=== PATIENT | female | born 1960 | race Caucasian/White ===

== ENCOUNTER → 2018-07-19 | Outpatient (REF) | payer OTHER, MEDICAID | LOC: M SFHCLERA 11:39 | DX: J02.9 Acute pharyngitis, unspecified (principal) ==

== ENCOUNTER → 2021-02-20 | Outpatient (CLI) | payer OTHER ==
[~2021-02-20] MED LIST: E-Z-GAS II EFFERVESCENT PACKET (SODIUM BICARB./CITRIC ACID/SIMETHICONE) As Ordered ONE; E-Z-HD 98% w/w 340GM SUSP BTL As Ordered ONE; E-Z-PAQUE 96% w/w SUSP 176GM BTL As Ordered ONE
--- NOTE | 2021-02-20 18:51 | REP ---
INDICATION: DYSPHAGIA GERD W/ EPIGASTRIC PAIN. COMPARISON: None TECHNIQUE: This procedure was performed by Marie Skaggs [facility], under the direct supervision of Dr. Haddad. Images were reviewed with Dr. Haddad prior to dictation. Liquid barium and gas producing crystals were given in the erect position, as well as liquid barium in the prone oblique position in order to perform a double contrast upper GI examination. FINDINGS: The preschool aide film shows no organomegaly or pathological masses. The intestinal gas pattern is unremarkable. Again visualized is dextroconvex curvature of the thoracolumbar junction with a Morris ara from the upper thoracic spine to the mid lower lumbar spine. The oral and pharyngeal stages of deglutition were unremarkable. There cricopharyngeal hyperplasia. Esophageal transport is prompt and efficient and there is no evidence of esophagitis, stricture, or mucosal ring. There is evidence of a moderate sliding hiatal hernia. Gastroesophageal reflux was visualized to the level of the barby. The stomach feliciano are normally outlined. The rugal folds are smooth and regular. There is no gastritis, neoplasm, or ulcerative disease. The duodenal feliciano are normally outlined. The mucosal folds are smooth and regular. There is no duodenitis, peptic ulcer disease or neoplasm. The visualized portion of the proximal small bowel appears normal in course and caliber. IMPRESSION: 1. Cricopharyngeal hyperplasia. 2. Moderate sliding hiatal hernia. 3. Gastroesophageal reflux to the level of the barby. 1.0 minutes of fluoroscopy time was utilized for this procedure. Some fluoroscopic images are performed with last image hold technology. These images require no additional radiation. <Electronically signed by Marie Skaggs > 02/20/21 155 <Electronically signed by Gonzalo Haddad > 02/20/21 [id number]
== END ==
LOC: M RAD 09:47
PROVIDERS: ATTEND Physician Assistant Medical
DX: R13.10 Dysphagia, unspecified (principal); K21.9 Gastro-esophageal reflux disease without esophagitis; R10.13 Epigastric pain

== ENCOUNTER → 2021-03-08 | Outpatient (CLI) | payer OTHER, MEDICAID ==
[~2021-03-08] MED LIST changes: +CELE1CAP9 PO; +D3400CAP PO; -E-Z-GAS II EFFERVESCENT PACKET (SODIUM BICARB./CITRIC ACID/SIMETHICONE) As Ordered ONE; -E-Z-HD 98% w/w 340GM SUSP BTL As Ordered ONE; -E-Z-PAQUE 96% w/w SUSP 176GM BTL As Ordered ONE; +LISI10TA22 PO; +METO1TAB32; +RA M500C PO; +TAMS1CAP17 PO
== END ==
LOC: M LABSMTC 08:50
PROVIDERS: ATTEND Anesthesiology
DX: Z20.828 Contact with and (suspected) exposure to other viral communicable diseases (principal); Z11.59 Encounter for screening for other viral diseases

== ENCOUNTER 2021-03-13 09:21 | Day surgery (SDC) | payer OTHER ==
[~2021-03-13] VITALS: Ht 147.3 cm; Wt 82.3 kg
[~2021-03-13 09:21] MED LIST changes: +LIDOCAINE 2% 100MG/5ML SDV (FOR ANES.) As Ordered ONE; +NS 1,000 ML IV ONE; +propofoL 200 MG/20 ML VIAL As Ordered ONE
[2021-03-13] MEDS ORDERED: propofoL 200 MG/20 ML VIAL As Ordered ONE (10:23)
--- NOTE | 2021-03-13 10:46 | ROOR ---
Patient Name: Courtney Sherwood Procedure Date: 03/13/2021 10:10 AM Date of : 1960 Age: 60 Room: [facility] Gender: Female Note Status: Finalized Procedure: Upper GI endoscopy Indications: Dysphagia, Suspected gastro-esophageal reflux disease Providers: Freddy Lopez MD Referring MD: Shireen NAVARRO MD Requesting Provider: Medicines: Monitored Anesthesia Care Complications: No immediate complications. Procedure: Pre-Anesthesia Assessment: - Prior to the procedure, a History and Physical was performed, and patient medications and allergies were reviewed. The patient is competent. The risks and benefits of the procedure and the sedation options and risks were discussed with the patient. All questions were answered and informed consent was obtained. Patient identification and proposed procedure were verified by the physician, the nurse and the anesthesiologist in the procedure room. Mental Status Examination: alert and oriented. Airway Examination: normal oropharyngeal airway and neck mobility. Respiratory Examination: clear to auscultation. CV Examination: normal. Prophylactic Antibiotics: The patient does not require prophylactic antibiotics. Prior Anticoagulants: The patient has taken no previous anticoagulant or antiplatelet agents. ASA Grade Assessment: II - A patient with mild systemic disease. After reviewing the risks and benefits, the patient was deemed in satisfactory condition to undergo the procedure. The anesthesia plan was to use monitored anesthesia care (MAC). Immediately prior to administration of medications, the patient was re-assessed for adequacy to receive sedatives. The heart rate, respiratory rate, oxygen saturations, blood pressure, adequacy of pulmonary ventilation, and response to care were monitored throughout the procedure. The physical status of the patient was re-assessed after the procedure. The Endoscope was introduced through the mouth, and advanced to the second part of duodenum. The upper GI endoscopy was accomplished without difficulty. The patient tolerated the procedure well. Findings: One benign-appearing, intrinsic moderate stenosis was found in the distal esophagus. This stenosis measured 1.5 cm (inner diameter). The stenosis was traversed. Biopsies were taken with a cold forceps for histology. Verification of patient identification for the specimen was done by the physician and nurse using the patient's name, date and medical record number. Estimated blood loss was minimal. A TTS dilator was passed through the scope. Dilation with a 15-16.5-18 mm balloon dilator was performed to 18 mm. The dilation site was examined following endoscope reinsertion and showed mild mucosal disruption, moderate improvement in luminal narrowing and no perforation. A small hiatal hernia was present. Scattered mild inflammation characterized by erythema and granularity was found in the gastric antrum. Biopsies were taken with a cold forceps for Helicobacter pylori testing. The duodenal bulb and second portion of the duodenum were normal. Impression: - Benign-appearing esophageal stenosis. Biopsied. Dilated. - Small hiatal hernia. - Gastritis. Biopsied. - Normal duodenal bulb and second portion of the duodenum. Recommendation: - Patient has a contact number available for emergencies. The signs and symptoms of potential delayed complications were discussed with the patient. Return to normal activities tomorrow. Written discharge instructions were provided to the patient. - Full liquid diet today, then advance as tolerated to high fiber diet. - Continue present medications. - Use Protonix (pantoprazole) 40 mg PO twice daily - to be taken in morning (1/2 hour before breakfast) and at bedtime ( atleast 3 hours after last meal) for 3 months. - Use sucralfate suspension 1 gram PO QID for 4 weeks. - Follow an antireflux regimen. - Await pathology results. - Repeat upper endoscopy in 3 months to check healing, to evaluate the response to therapy and for retreatment. - Return to GI clinic in [facility] (address [address], [address], [place], [facility]) in 4 -- 6 weeks. Please call GI clinic @ [phone] for apppointment date and time. - Return to primary care physician. Procedure Code(s): --- Professional --- 46609, 59, Esophagogastroduodenoscopy, flexible, transoral; with transendoscopic balloon dilation of esophagus (less than 30 mm diameter) 29663, 59, Esophagogastroduodenoscopy, flexible, transoral; with biopsy, single or multiple Diagnosis Code(s): --- Professional --- K22.2, Esophageal obstruction K44.9, Diaphragmatic hernia without obstruction or gangrene K29.70, Gastritis, unspecified, without bleeding R13.10, Dysphagia, unspecified CPT copyright 2019 [employer]. All rights reserved. The codes documented in this report are preliminary and upon vacuum repairer review may be revised to meet current compliance requirements. Freddy Lopez MD Freddy Lopez MD 03/13/2021 10:46:26 AM Electronically signed by Freddy Lopez MD Number of Addenda: 0 Note Initiated On: 03/13/2021 10:10 AM Estimated Blood Loss: Estimated blood loss was minimal.
[2021-03-13 10:55] VITALS: BP 136/76
== END 2021-03-13 11:12 | disposition home or self-care (01) ==
LOC: M OPP 09:21
PROVIDERS: ATTEND Internal Medicine Gastroenterology
DX: K22.2 Esophageal obstruction (principal); K44.9 Diaphragmatic hernia without obstruction or gangrene; K29.70 Gastritis, unspecified, without bleeding; R13.10 Dysphagia, unspecified; K21.9 Gastro-esophageal reflux disease without esophagitis; Z79.899 Other long term (current) drug therapy; Z88.5 Allergy status to narcotic agent; Z88.6 Allergy status to analgesic agent

== ENCOUNTER → 2021-04-26 | Outpatient (CLI) | payer OTHER ==
[~2021-04-26] MED LIST changes: -LIDOCAINE 2% 100MG/5ML SDV (FOR ANES.) As Ordered ONE; -NS 1,000 ML IV ONE; -propofoL 200 MG/20 ML VIAL As Ordered ONE
--- NOTE | 2021-04-26 11:30 | REP ---
INDICATION: CERVICAL DDD COMPARISON: None. TECHNIQUE: Axial noncontrast images from the skull base to the thoracic inlet with coronal and sagittal re-formations This CT examination was performed using the following dose reduction techniques: Automated exposure control, adjustment of mA and/or kv according to the patient's size, and use of iterative reconstruction technique. FINDINGS: There is no evidence for acute fracture/compression injury or acute subluxation. Sagittal reformations demonstrate reversal of normal lordosis centered at C4-C6 along with advanced, severe multilevel degenerative disc osteophyte complexes. Findings include marked marginal and posterior osteophytosis, endplate sclerosis/heterogeneity with essentially near complete disc space obliteration and hypertrophic facet changes causing bilateral (left greater than right) foraminal narrowing. Findings are most pronounced and centered at the C6-7 level and extend primarily cranially to the C4-5 level and caudally to the T2-3 level. There is associated relatively moderate to significant areas of canal stenosis primarily involving C4-5 to C6-7. Surrounding paravertebral soft tissues are grossly age-appropriate and within normal limits. Incidental hypodense nodular changes primarily involving the thyroid isthmus and right lobe. IMPRESSION: 1. Extensive multilevel degenerative changes which include neural foraminal narrowing and canal stenosis as described above. Clinical/physical correlation is required and MRI should be considered if possible for further investigation and pathology involving the cord and or exiting nerve roots. 2. No evidence for acute fracture/compression injury or acute subluxation noted. <Electronically signed by Carlos Alberto Dowling > 04/26/21 [id number]
== END ==
LOC: M RAD 10:57
PROVIDERS: ATTEND Physician Assistant
DX: M50.320 Other cervical disc degeneration, mid-cervical region, unspecified level (principal); M50.33 Other cervical disc degeneration, cervicothoracic region

== ENCOUNTER → 2021-05-08 | Outpatient (CLI) | payer MEDICAID, OTHER ==
[2021-05-08 12:25] LABS: APPEARANCE, URINE CLOUDY (CLEAR); BACTERIA, URINE AUTO NEGATIVE (NEGATIVE); BILIRUBIN, URINE AUTO NEGATIVE (NEGATIVE); BLOOD, URINE BLOOD NEGATIVE (NEGATIVE); COLOR, URINE YELLOW (YELLOW); GLUCOSE, URINE (UA) AUTO NEGATIVE (NEGATIVE); KETONE, URINE AUTO NEGATIVE (NEGATIVE); LEUKOCYTE ESTERASE, URINE AUTO 2+ (NEGATIVE); MUCUS, URINE SMALL (NEGATIVE); NITRITE, URINE AUTO NEGATIVE (NEGATIVE); PROTEIN, URINE AUTO NEGATIVE (NEGATIVE); RBC, URINE AUTO 2 /HPF (0-3); SPECIFIC GRAVITY URINE AUTO 1.019 (1.002-1.035); SQUAMOUS EPITHELIAL CELL UR AU 10 /HPF (0-6); UROBILINOGEN, URINE AUTO 0.2 mg/dL (0.0-2.0); WBC, URINE AUTO 5 /HPF (0-3)
[2021-05-08 12:27] LABS: HEMATOCRIT 42.4 % (36.0-47.0); HEMOGLOBIN 13.6 g/dl (12.0-15.5); MEAN CORPUSCULAR HEMOGLOBIN 28.2 pg (27.0-33.0); MEAN CORPUSCULAR HGB CONC 32.1 g/dl (32.0-36.5); PLATELET COUNT, AUTOMATED 326 10^3/uL (150-450); RED BLOOD COUNT 4.82 10^6/uL (4.00-5.40); WHITE BLOOD COUNT 5.2 10^3/uL (4.0-10.0)
[2021-05-08 12:57] LABS: ATYPICAL LYMPH 6 % (0-5); BASOPHILS 1 % (0-1); EOSINOPHILS 4 % (0-3); LYMPHOCYTES 38 % (16-44); MONOCYTES 9 % (0-5); NEUTROPHILS 42 % (28-66)
[2021-05-08 12:58] LABS: PLATELET ESTIMATE NORMAL (NORMAL)
[2021-05-08 13:00] LABS: CREATININE,RANDOM URINE 75.5 MG/DL; TOTAL PROTEIN,RANDOM URINE 9.5 MG/DL (0.0-12.0)
[2021-05-08 13:23] LABS: ERYTHROCYTE SEDIMENTATION RATE 20 mm/hr (0-30)
[2021-05-08 15:29] LABS: ALBUMIN 3.6 GM/DL (3.2-5.2); ALT/SGPT 40 U/L (12-78); BILIRUBIN,TOTAL 0.3 MG/DL (0.2-1.0); BLOOD UREA NITROGEN 18 MG/DL (7-18); C REACTIVE PROTEIN QUANTITATIV 0.53 MG/DL (0.00-0.30); CALCIUM LEVEL 9.1 MG/DL (8.8-10.2); CARBON DIOXIDE LEVEL 27 MEQ/L (21-32); CHLORIDE LEVEL 105 MEQ/L (98-107); COMPLEMENT C3 120 MG/DL (90-180); COMPLEMENT C4 24 MG/DL (10-40); CPK CREATINE PHOSPHOKINASE 179 U/L (26-192); CREATININE FOR GFR 0.46 MG/DL (0.55-1.30); GLOMERULAR FILTRATION RATE > 60.0 (>45); GLUCOSE, FASTING 98 MG/DL (70-100); POTASSIUM SERUM 4.4 MEQ/L (3.5-5.1); SODIUM LEVEL 138 MEQ/L (136-145); TOTAL PROTEIN 7.2 GM/DL (6.4-8.2)
--- NOTE | 2021-05-09 03:59 | REP ---
INDICATION: OTHER HYPERTROPHIC OSTEOARTHROPATHY, MULTIPLE SITES / LABS 1 COMPARISON: None. TECHNIQUE: AP, lateral, bilateral oblique views right and left foot. FINDINGS: Left foot demonstrates age-related osteopenia and age-related changes including elements of periarticular sclerosis and mild joint space narrowing. Lateral view demonstrates small calcaneal heel spur. No further overt osteoarthritic or inflammatory arthritic changes are appreciated. No evidence for acute or healed injury. Right foot demonstrates age-related osteopenia and age-related changes including elements of periarticular sclerosis and mild joint space narrowing. No further overt osteoarthritic or inflammatory arthritic changes are appreciated. No evidence for acute or healed injury. IMPRESSION: Generalized age-related osteopenia and degenerative changes. <Electronically signed by Carlos Alberto Dowling > 05/09/21 [id number]
--- NOTE | 2021-05-09 04:10 | REP ---
INDICATION: OTHER HYPERTROPHIC OSTEOARTHROPATHY, MULTIPLE SITES / LABS 1 COMPARISON: None. TECHNIQUE: AP, lateral, bilateral oblique views right and left hand. FINDINGS: Right hand demonstrates moderate arthritic changes to the interphalangeal joints including periarticular sclerosis, joint space narrowing, and marginal spurring. Similar findings identified at the 1st metacarpophalangeal joint. Cortical irregularity, periarticular sclerosis and joint space narrowing identified at the 1st and 2nd carpometacarpal joints along with increased sclerosis and joint space narrowing at the radiocarpal joint. Left hand demonstrates moderate arthritic changes to the interphalangeal joints including periarticular sclerosis, joint space narrowing, and marginal spurring. Similar findings identified at the 1st metacarpophalangeal joint. Cortical irregularity, periarticular sclerosis and joint space narrowing identified at the 1st carpometacarpal joint along with increased sclerosis and joint space narrowing at the radiocarpal joint. IMPRESSION: Relatively symmetric moderate arthritic degenerative changes. <Electronically signed by Carlos Alberto Dowling > 05/09/21 [id number]
== END ==
LOC: M LAB 11:35
PROVIDERS: ATTEND Internal Medicine Rheumatology
DX: R76.8 Other specified abnormal immunological findings in serum (principal); H16.203 Unspecified keratoconjunctivitis, bilateral; M89.49 Other hypertrophic osteoarthropathy, multiple sites

== ENCOUNTER → 2021-05-13 | Outpatient (CLI) | payer OTHER ==
[~2021-05-13] MED LIST changes: +FUROSEMIDE 20MG/2ML VIAL (J1940) As Ordered ONE
--- NOTE | 2021-05-13 15:22 | REP ---
INDICATION: HYDRONEPHROSIS W/ UPJ OBST. COMPARISON: CT 03/04/2021. TECHNIQUE/RADIOTRACER AND DOSE: Following the intravenous administration of 8.8 mCi technetium 99 M Mag 3, flow images and delayed images are obtained in the posterior projection for 30 minutes. Further imaging is performed following the intravenous administration of 20 mg of intravenous Lasix. FINDINGS: There is fairly prompt and symmetrical perfusion of the kidneys bilaterally. Relatively homogeneous cortical uptake is seen bilaterally and there is symmetrical excretion and cortical washout. There is mild persistent hydronephrosis symmetrically bilaterally. Split function is 47.4% on the left and 52.6% on the right. Time to peak is normal bilaterally at 2 minutes. T1/2 is 11.4 minutes on the left and 10.3 minutes on the right essentially at the upper limits of normal. Renal function curves appear relatively normal in their downward slopes. Post Lasix images show clearance of the residual activity in the pelvocaliceal systems bilaterally. There is minimal postvoid residual in the urinary bladder after voiding. IMPRESSION: Relatively good function bilaterally and symmetrically. Initial residual mild hydronephrosis clears with Lasix administration and therefore appears to be nonobstructive. <Electronically signed by Gonzalo Haddad > 05/13/21 [id number]
== END ==
LOC: M RAD 08:34
PROVIDERS: ATTEND Specialist
DX: N13.0 Hydronephrosis with ureteropelvic junction obstruction (principal)
CPT/HCPCS: 78708; A9562; J1940

== ENCOUNTER → 2022-01-16 | Outpatient (CLI) | payer OTHER ==
[~2022-01-16] MED LIST changes: -FUROSEMIDE 20MG/2ML VIAL (J1940) As Ordered ONE; +LIDOCAINE 1% MDV 20ML VIAL As Ordered ONE; +LOSA50TA28 PO; +RA B1TAB7 PO
[2022-01-16 14:10] VITALS: BP 169/83
== END ==
LOC: M IRPRO 12:07
PROVIDERS: ATTEND Orthopaedic Surgery
DX: D17.1 Benign lipomatous neoplasm of skin and subcutaneous tissue of trunk (principal)

== ENCOUNTER → 2022-03-11 | Outpatient (CLI) | payer OTHER ==
[~2022-03-11] MED LIST changes: -LIDOCAINE 1% MDV 20ML VIAL As Ordered ONE
== END ==
LOC: M RAD 11:46
PROVIDERS: ATTEND Internal Medicine Endocrinology, Diabetes & Metabolism
DX: R94.6 Abnormal results of thyroid function studies (principal)
CPT/HCPCS: 78012; A9516

== ENCOUNTER 2023-09-24 07:55 | Day surgery (SDC) | payer OTHER ==
[~2023-09-24] VITALS: Ht 142.2 cm; Wt 75.5 kg
[~2023-09-24 07:55] MED LIST changes: +CARV3.12 PO; +CELE0.09 PO; -CELE1CAP9 PO; +CIPR500T39 PO; +COQ150CH PO; +METR-265 PO; +NS 1,000 ML IV ONE
[2023-09-24] MEDS ORDERED: LIDOCAINE 2% 100MG/5ML SDV (FOR ANES.) As Ordered ONE (08:33)
[2023-09-24] MEDS ORDERED: propofoL 500 MG/50 ML VIAL As Ordered ONE (08:33)
[2023-09-24] MEDS ORDERED: fentaNYL 100 MCG/2 ML INJECTION As Ordered ONE (08:34)
[2023-09-24 10:32] VITALS: TEMP 97.4
[2023-09-24 10:51] VITALS: BP 140/72; O2SAT 100
== END 2023-09-24 11:01 | disposition home or self-care (01) ==
LOC: M OPP 07:55
PROVIDERS: ATTEND Internal Medicine Gastroenterology
DX: K22.2 Esophageal obstruction (principal); K63.5 Polyp of colon; K57.30 Diverticulosis of large intestine without perforation or abscess without bleeding; K64.8 Other hemorrhoids; K64.4 Residual hemorrhoidal skin tags; K44.9 Diaphragmatic hernia without obstruction or gangrene; I10 Essential (primary) hypertension; E03.9 Hypothyroidism, unspecified; Z79.899 Other long term (current) drug therapy; M32.9 Systemic lupus erythematosus, unspecified; G47.30 Sleep apnea, unspecified
CPT/HCPCS: 43239; 43249; 45385; 88305; J3010

== ENCOUNTER → 2024-10-24 | Outpatient (CLI) | payer OTHER ==
[~2024-10-24] MED LIST changes: +CHOL10CA2 PO; -D3400CAP PO; -NS 1,000 ML IV ONE
== END ==
LOC: M WHC 09:30
PROVIDERS: ATTEND Internal Medicine
DX: Z13.820 Encounter for screening for osteoporosis (principal); M85.89 Other specified disorders of bone density and structure, multiple sites

== ENCOUNTER → 2025-04-11 | Outpatient (REF) | payer MEDICAID, OTHER | LOC: M LAB REF 21:41 | PROVIDERS: ATTEND Physician Assistant | DX: B34.9 Viral infection, unspecified (principal) ==